=== PATIENT | female | born 1955 | race Caucasian/White ===

== ENCOUNTER 2019-07-20 14:30 | Outpatient (RCR) | payer OTHER, SELFPAY ==
[2019-07-13 08:46] VITALS: BP 137/82; PULSE 76; RESP 18; TEMP 36.6; BMI 20.8
--- NOTE | 2019-07-13 12:41 | PCM.WC.HP ---
(1) HTN (hypertension) Status: Chronic Current Visit: Yes Qualifiers: Hypertension type: essential hypertension Qualified Code(s): I10 - Essential (primary) hypertension Code(s): I10 - Essential (primary) hypertension (2) Tobacco abuse Status: Chronic Current Visit: Yes Code(s): Z72.0 - Tobacco use (3) H/O ETOH abuse Status: Chronic Current Visit: Yes Code(s): F10.11 - Alcohol abuse, in remission (4) Cellulitis Status: Chronic Current Visit: Yes Qualifiers: Site of cellulitis: extremity Site of cellulitis of extremity: upper extremity Laterality: right Qualified Code(s): L03.113 - Cellulitis of right upper limb Code(s): L03.90 - Cellulitis, unspecified (5) Olecranon bursitis of both elbows Status: Chronic Current Visit: Yes Code(s): M70.21 - Olecranon bursitis, right elbow; M70.22 - Olecranon bursitis, left elbow (6) Nonhealing nonsurgical wound with fat layer exposed Status: Chronic Current Visit: Yes Code(s): T14.8XXA - Other injury of unspecified body region, initial encounter Comment: s/p biopsy History of Present Illness Date of Service: 07/13/19 Chief Complaint: nonhealing wound of right ventral forearm History of Wound: Chanda is a 63 yo female who presents to the wound center for evaluation and treatment of a nonhealing wound of right forearm/elbow area that has been present for approx. 9 months. She reports that she developed an erythematous lesion which opened and was not healing approx. 1 year ago and was punch biopsied by her PCP several months ago and has never healed. She does not know what the biopsy showed but was done to r/o skin cancer which she reports that it did not show skin cancer and that she was being treated for psoriasis with steroid cream but there has been no improvement. She was referred to see Dr. Eduardo after being seen in [facility] and having IV antibiotic treatment x 2 doses and then given oral Bactrim which she has continued to take for the last 3 weeks. She had an xray in Dr. Eduardo's office which did not show infection in the bone per patient. She states that the pain and redness has improved since antibiotic treatment but the wound still has not changed. Denies drainage currently but there was when she went to ER. She has not been dressing the wound with anything but has been applying the steroid cream. She denies any fever, chills or signs of systemic infection. 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 tobacco abuse. Psoriasis Surgical History: no surgical history Allergies/Adverse Reactions: Allergies prednisone Adverse Reaction (Verified 07/13/19 12:59) Unknown - Family History Paternal Heart Disease Sibling Stroke Lives: Spouse/ Significant Other Smoking Status: Current every day smoker Tobacco Use: Cigarettes Alcohol: Occasional Drugs: None Review of Systems Constitutional: Denies: Chills, Fever, Weight Change Eyes: Denies: Pain, Vision Change HEENT: Denies: Difficulty Hearing, Difficulty Swallowing, Sinus Congestion Cardiovascular: Denies: Chest Pain, Palpitations Respiratory: Denies: Cough, Shortness of Breath Gastrointestinal: Denies: Diarrhea, Nausea, Vomiting Genitourinary: Denies: Dysuria, Hematuria Musculoskeletal: Reports: Joint Pain Skin: Reports: Rash, Wounds Endocrine: Denies: Heat/ Cold Intolerance, Polydipsia, Polyuria Hematologic/ Lymphatic: Denies: Easy Bruising, Easy Bleeding - Physical Exam Vital Signs Temp Pulse Resp BP 97.9 F 76 18 137/82 H 07/13/19 08:46 07/13/19 08:46 07/13/19 08:46 07/13/19 08:46 General: Alert, Oriented x3, Cooperative, No apparent distress HEENT: Atraumatic, Normocephalic Oral: Moist Mucosa Neck: Supple Lungs: Clear to auscultation Cardiovascular: Regular rate, Regular Rhythm Abdomen: Soft, Non-Distended Extremities: No edema Skin: Ulcer/ Wound, - - erythematous elbows and some silver plaque b/l Wound Measurements and Assessment WC - Nurse 1 - General Ulcer Measurement Start: 07/13/19 08:35 Freq: Status: Active Protocol: Activity Type Activity Date Activity User E-Sign Co-Sign Detail Recorded Client Recorded Date Recorded By Document 07/13/19 08:46 MW [id number] 07/13/19 08:56 MW 07/13/19 08:46 Wound Center Nurse 1 [Ulcer Assessment] #1 right superior forearm -Combined with other wound No -Current Size (cm) - Length 0.7 -Current Size (cm) - Width 0.6 -Current Size (cm) - Depth 0.2 -Total Square Cm 0.42 -Date of Last Picture (Recall this 07/13/19 field) -Photo Taken Yes -Epithelialization None Present -Tunneling No -Undermining/Tunneling No -Circular Undermining No -Exudate Amt None Present -Wound Margin Flat & Intact -Granulation Amt None Present (0 %) -Granulation Quality N/A -Slough/Fibrin Yes -Necrosis Amt Large (67-100%) -Necrotic Tissue Type Adherent Slough -Structure Exposed N/A -Texture (Sarahi-wound Skin Appearance) Assessed -Moisture (Sarahi-wound Skin Appearance Assessed,Dry/ ) Scaly -Color (Sarahi-wound Skin Appearance) Assessed, Erythema -Temperature (Sarahi-wound Skin No Abnormality Appearance) (Pt Warm) -Tenderness on Palpation (Sarahi-wound Yes Skin Appearance) -Ulcer Cleansing Rinsed/ Irrigated with Saline -Foul Odor after Cleansing No -Anesthetic Used 5% Lidocaine Gel [Edema Assessment] -Lower Limb Edema Present No WC - Nurse 2 - General Ulcer CM Notes Start: 07/13/19 08:35 Freq: Status: Active Protocol: Activity Type Activity Date Activity User E-Sign Co-Sign Detail Recorded Client Recorded Date Recorded By Document 07/13/19 09:28 DV [id number] 07/13/19 09:56 DV 07/13/19 09:28 Wound Center Nurse 2 [Procedure/Treatment] #1 right superior forearm -Time 09:39 -Correct Patient Yes -Correct Side, Site, Position Yes -Correct Procedure Yes -Procedure Performed Yes -Type of Procedure Debridement -Clinical Debridement Subcutaneous -Post Debridement Size (cm) - Length 2.0 -Post Debridement Size (cm) - Width 1.5 -Post Debridement Size (cm) - Depth 0.2 -Total Square Cm 3.00 -Wound/Ulcer Outcome Not Healed [See Physician Procedure note for Specifics] Psych/Mental Status: Normal Affect, Appropriate Debridement Note Post-Debridement Measurements/Treatment WC - Nurse 2 - General Ulcer CM Notes Start: 07/13/19 08:35 Freq: Status: Active Protocol: Activity Type Activity Date Activity User E-Sign Co-Sign Detail Recorded Client Recorded Date Recorded By Document 07/13/19 09:28 DV [id number] 07/13/19 09:56 DV 07/13/19 09:28 Wound Center Nurse 2 #1 right superior forearm -Time 09:39 -Correct Patient Yes -Correct Side, Site, Position Yes -Correct Procedure Yes -Procedure Performed Yes -Type of Procedure Debridement -Clinical Debridement Subcutaneous -Post Debridement Size (cm) - Length 2.0 -Post Debridement Size (cm) - Width 1.5 -Post Debridement Size (cm) - Depth 0.2 -Total Square Cm 3.00 -Wound/Ulcer Outcome Not Healed Wound debrided: right superior forearm Laterality: Right Type of Debridement: Excisional debridement Anesthesia Used: 4% Lidocaine Solution, 5% Lidocaine Gel, Cetacaine - 5 ml with 1% lidocaine with epi Depth: Down to and including healthy tissue, in the subcutaneous layer Percentage of wound debrided: 100 Instrument Used: #15 blade, Forceps Tissue Removed: yellow slough, devitalized tissue Severity: Fat Layer Exposed Amount of bleeding with debridement: Mild Bleeding Controlled with: Compression and gauze Patient tolerated procedure well Assessment/Plan Active Problems HTN (hypertension) (Chronic) Tobacco abuse (Chronic) H/O ETOH abuse (Chronic) Cellulitis (Chronic) Olecranon bursitis of both elbows (Chronic) 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 Excision of skin causing undermining performed after area anesthetized with 1% lidocaine with epi. Patient tolerated procedure well. Wound culture taken and will adjust antibiotic if needed. No foreign body or fistula/tracts identified. Will have her use Promogran and adaptic to the wound with changes daily. Complete antibiotics. Call if increased erythema, drainage, bleeding or odor. Encouraged to increase protein intake in diet, smoking cessation encouraged as well. Pre-albumin checked to evaluate nutritional status. Records requested for biopsy results and xray. F/U in 1 week
[2019-07-13 13:08] LABS: Prealbumin 35.9 mg/dL (20.0-40.0)
[2019-07-20 14:08] VITALS: BP 132/83; PULSE 111; RESP 18; TEMP 36.2; BMI 20.8
--- NOTE | 2019-07-20 18:08 | PCM.WC.PN ---
(1) HTN (hypertension) Status: Chronic Qualifiers: Hypertension type: essential hypertension Qualified Code(s): I10 - Essential (primary) hypertension Code(s): I10 - Essential (primary) hypertension (2) Tobacco abuse Status: Chronic Code(s): Z72.0 - Tobacco use (3) H/O ETOH abuse Status: Chronic Code(s): F10.11 - Alcohol abuse, in remission (4) Cellulitis Status: Chronic Qualifiers: Site of cellulitis: extremity Site of cellulitis of extremity: upper extremity Laterality: right Qualified Code(s): L03.113 - Cellulitis of right upper limb Code(s): L03.90 - Cellulitis, unspecified (5) Olecranon bursitis of both elbows Status: Chronic Code(s): M70.21 - Olecranon bursitis, right elbow; M70.22 - Olecranon bursitis, left elbow (6) Nonhealing nonsurgical 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 9 months. She reports that she developed an erythematous lesion which opened and was not healing approx. 1 year ago and was punch biopsied by her PCP several months ago and has never healed. She does not know what the biopsy showed but was done to r/o skin cancer which she reports that it did not show skin cancer and that she was being treated for psoriasis with steroid cream but there has been no improvement. She was referred to see Dr. Eduardo after being seen in [facility] ER and having IV antibiotic treatment x 2 doses and then given oral Bactrim which she has continued to take for the last 3 weeks. She had an xray in Dr. Eduardo's office which did not show infection in the bone per patient. She states that the pain and redness has improved since antibiotic treatment but the wound still has not changed. Denies drainage currently but there was when she went to ER. She has not been dressing the wound with anything but has been applying the steroid cream. She denies any fever, chills or signs of systemic infection. Progress of Wound: Chanda is here for follow up of nonhealing surgical wound of her right ventral forearm. She tolerated excisional debridement performed at last visit. She tolerated Promogran dressings. Wound culture came back that bacteria was not sensitive to bactrim, stap epidermidis but is sensutive to doxycycline. She denies any fever, chills or increased pain or drainage. - Physical Exam Vital Signs Temp Pulse Resp BP 97.1 F L 111 H 18 132/83 H 07/20/19 14:08 07/20/19 14:08 07/20/19 14:08 07/20/19 14:08 General: Alert, Oriented x3, Cooperative, No apparent distress HEENT: Atraumatic, Normocephalic Oral: Moist Mucosa Extremities: No edema Skin: Ulcer/ Wound Wound Measurements and Assessment WC - Nurse 1 - General Ulcer Measurement Start: 07/13/19 08:35 Freq: Status: Active Protocol: Activity Type Activity Date Activity User E-Sign Co-Sign Detail Recorded Client Recorded Date Recorded By Document 07/20/19 14:08 [id number] 07/20/19 14:11 RB 07/20/19 14:08 Wound Center Nurse 1 [Ulcer Assessment] #1 right superior forearm -Combined with other wound No -Current Size (cm) - Length 1.5 -Current Size (cm) - Width 1.4 -Current Size (cm) - Depth 0.1 -Total Square Cm 2.10 -Tunneling No -Undermining/Tunneling No -Circular Undermining No -Exudate Amt Small -Exudate Type Serosanguineous -Wound Margin Flat & Intact -Granulation Amt Medium (34-66%) -Granulation Quality [place] -Slough/Fibrin Yes -Necrosis Amt Small (1-33%) -Necrotic Tissue Type Adherent Slough -Structure Exposed N/A -Texture (Sarahi-wound Skin Appearance) Assessed, Scarring -Moisture (Sarahi-wound Skin Appearance Assessed ) -Color (Sarahi-wound Skin Appearance) Assessed -Temperature (Sarahi-wound Skin No Abnormality Appearance) (Pt Warm) -Tenderness on Palpation (Sarahi-wound No Skin Appearance) -Ulcer Cleansing Wound Cleanser -Foul Odor after Cleansing No -Anesthetic Used 5% Lidocaine Gel WC - Nurse 2 - General Ulcer CM Notes Start: 07/13/19 08:35 Freq: Status: Active Protocol: Activity Type Activity Date Activity User E-Sign Co-Sign Detail Recorded Client Recorded Date Recorded By Document 07/20/19 14:51 MW [id number] 07/20/19 15:00 MW 07/20/19 14:51 Wound Center Nurse 2 [Procedure/Treatment] -Time 14:53 -Correct Patient Yes -Correct Side, Site, Position Yes -Correct Procedure Yes -Procedure Performed Yes -Type of Procedure Debridement -Clinical Debridement Subcutaneous -Post Debridement Size (cm) - Length 1.8 -Post Debridement Size (cm) - Width 1.5 -Post Debridement Size (cm) - Depth 0.2 -Total Square Cm 2.70 -Wound/Ulcer Outcome Not Healed -Ulcer Cleansing Rinsed/ Irrigated with Saline -Foul Odor after Cleansing No -Bioengineered Tissue No -Bleeding Controlled with Pressure -Offloading No -Treatment Response Procedure Tolerated Well [See Physician Procedure note for Specifics] Pain Scale: 0-10 Numeric [Pain] -Is Patient Pain Free? Yes Psych/Mental Status: Normal Affect, Appropriate Debridement Note Post-Debridement Measurements/Treatment WC - Nurse 2 - General Ulcer CM Notes Start: 07/13/19 08:35 Freq: Status: Active Protocol: Activity Type Activity Date Activity User E-Sign Co-Sign Detail Recorded Client Recorded Date Recorded By Document 07/13/19 09:28 DV [id number] 07/13/19 09:56 DV Document 07/20/19 14:51 MW [id number] 07/20/19 15:00 MW 07/13/19 07/20/19 09:28 14:51 Wound Center Nurse 2 #1 right superior forearm -Time 09:39 14:53 -Correct Patient Yes Yes -Correct Side, Site, Position Yes Yes -Correct Procedure Yes Yes -Procedure Performed Yes Yes -Type of Procedure Debridement Debridement -Clinical Debridement Subcutaneous Subcutaneous -Post Debridement Size (cm) - Length 2.0 1.8 -Post Debridement Size (cm) - Width 1.5 1.5 -Post Debridement Size (cm) - Depth 0.2 0.2 -Total Square Cm 3.00 2.70 -Wound/Ulcer Outcome Not Healed Not Healed -Ulcer Cleansing Rinsed/ Irrigated with Saline -Foul Odor after Cleansing No -Bioengineered Tissue No -Bleeding Controlled with Pressure -Offloading No -Treatment Response Procedure Tolerated Well Pain Scale: 0-10 Numeric Is Patient Pain Free? Yes Wound debrided: right superior forearm Laterality: Right Type of Debridement: Excisional debridement Anesthesia Used: 4% Lidocaine Solution Depth: Down to and including healthy tissue, in the subcutaneous layer Percentage of wound debrided: 100 Instrument Used: 5mm curette Tissue Removed: yellow slough, devitalized tissue Severity: Fat Layer Exposed Amount of bleeding with debridement: Mild Bleeding Controlled with: Compression and gauze Patient tolerated procedure well Assessment/Plan Assessment: nonhealing surgical wound Plan: Chanda's wound was evaluated and debrided. Wound culture showed staph epidermis resistant to bactrim, RX given for doxycycline 100 mg BID x 10 days. She will use collagen hydrogel and adaptic covered with gauze instead of Promogran due to the wound being very dry with Promogran. Call if increased erythema, drainage, bleeding or odor. Encouraged to increase protein intake in diet, smoking cessation encouraged as well. Pre-albumin normal. Biopsy results reviewed and showed prurigo nodularis. F/U in 1 week
== END 2019-07-24 23:59 ==
LOC: WC 14:30
PROVIDERS: Referring Provider Family Medicine; Visit Provider Family Medicine
DX: T81.89XA Other complications of procedures, not elsewhere classified, initial encounter (principal); Y83.8 Other surgical procedures as the cause of abnormal reaction of the patient, or of later complication, without mention of misadventure at the time of the procedure; F17.210 Nicotine dependence, cigarettes, uncomplicated; I10 Essential (primary) hypertension; F10.11 Alcohol abuse, in remission; M70.22 Olecranon bursitis, left elbow; M70.21 Olecranon bursitis, right elbow; L03.113 Cellulitis of right upper limb
CPT/HCPCS: 11042; 84134; 87070; 87075; 87077; 87186; 87205; 99203; G0463

== ENCOUNTER 2019-08-24 16:42 | Outpatient (RCR) | payer OTHER, SELFPAY ==
[2019-07-25 01:08] VITALS: BP 132/83; PULSE 111; RESP 18; TEMP 36.2
[2019-07-27 07:59] VITALS: BP 175/90; PULSE 90; RESP 18; TEMP 36.3; BMI 20.8
--- NOTE | 2019-07-27 09:07 | PCM.WC.PN ---
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 9 months. She reports that she developed an erythematous lesion which opened and was not healing approx. 1 year ago and was punch biopsied by her PCP several months ago and has never healed. She does not know what the biopsy showed but was done to r/o skin cancer which she reports that it did not show skin cancer and that she was being treated for psoriasis with steroid cream but there has been no improvement. She was referred to see Dr. Eduardo after being seen in [facility] ER and having IV antibiotic treatment x 2 doses and then given oral Bactrim which she has continued to take for the last 3 weeks. She had an xray in Dr. Eduardo's office which did not show infection in the bone per patient. She states that the pain and redness has improved since antibiotic treatment but the wound still has not changed. Denies drainage currently but there was when she went to ER. She has not been dressing the wound with anything but has been applying the steroid cream. She denies any fever, chills or signs of systemic infection. Progress of Wound: Chanda is here for follow up of nonhealing surgical wound. Her wound looks better with hydrogel dressings. She denies any pain. She is tolerating doxycycline. She has had fluctuating blood pressures over the last week or two and had elevated blood pressure and shakiness on Tuesday and last weekend it was low in the 90s. She is scheduled to see PCP in August. Denies any fever or chills, odor or increased drainage. - Physical Exam Vital Signs Temp Pulse Resp BP 97.3 F L 90 18 175/90 H 07/27/19 07:59 07/27/19 07:59 07/27/19 07:59 07/27/19 07:59 General: Alert, Oriented x3, Cooperative, No apparent distress HEENT: Atraumatic, Normocephalic Oral: Moist Mucosa Neck: Supple Extremities: No edema Skin: Ulcer/ Wound Wound Measurements and Assessment WC - Nurse 1 - General Ulcer Measurement Start: 07/27/19 07:57 Freq: Status: Active Protocol: Activity Type Activity Date Activity User E-Sign Co-Sign Detail Recorded Client Recorded Date Recorded By Document 07/27/19 07:59 [id number] 07/27/19 08:04 [email or web address] 07/27/19 07:59 Wound Center Nurse 1 [Ulcer Assessment] #1 right superior forearm -Combined with other wound No -Current Size (cm) - Length 1.7 -Current Size (cm) - Width 1.4 -Current Size (cm) - Depth 0.2 -Total Square Cm 2.38 -Photo Taken No -Epithelialization None Present -Tunneling No -Undermining/Tunneling No -Circular Undermining No -Exudate Amt Small -Exudate Type Serosanguineous -Wound Margin Flat & Intact -Granulation Amt None Present (0 %) -Slough/Fibrin Yes -Necrosis Amt Large (67-100%) -Necrotic Tissue Type Adherent Slough -Structure Exposed N/A -Texture (Sarahi-wound Skin Appearance) Assessed -Moisture (Sarahi-wound Skin Appearance Assessed,Dry/ ) Scaly -Color (Sarahi-wound Skin Appearance) Assessed -Temperature (Sarahi-wound Skin No Abnormality Appearance) (Pt Warm) -Tenderness on Palpation (Sarahi-wound No Skin Appearance) -Ulcer Cleansing Rinsed/ Irrigated with Saline -Foul Odor after Cleansing No -Anesthetic Used 4% Lidocaine Solution [Edema Assessment] -Lower Limb Edema Present NA - Nurse 2 - General Ulcer CM Notes Start: 07/27/19 07:57 Freq: Status: Active Protocol: Activity Type Activity Date Activity User E-Sign Co-Sign Detail Recorded Client Recorded Date Recorded By Document 07/27/19 08:27 MW [id number] 07/27/19 08:35 MW 07/27/19 08:27 Wound Center Nurse 2 [Procedure/Treatment] #1 right superior forearm -Time 08:27 -Correct Patient Yes -Correct Side, Site, Position Yes -Correct Procedure Yes -Procedure Performed Yes -Type of Procedure Debridement -Clinical Debridement Subcutaneous -Post Debridement Size (cm) - Length 1.4 -Post Debridement Size (cm) - Width 1.4 -Post Debridement Size (cm) - Depth 0.2 -Total Square Cm 1.96 -Wound/Ulcer Outcome Not Healed -Ulcer Cleansing Rinsed/ Irrigated with Saline -Foul Odor after Cleansing No -Bioengineered Tissue No -Bleeding Controlled with Pressure -Offloading No -Treatment Response Procedure Tolerated Well [See Physician Procedure note for Specifics] Pain Scale: 0-10 Numeric [Pain] -Is Patient Pain Free? Yes Psych/Mental Status: Normal Affect, Appropriate Debridement Note Post-Debridement Measurements/Treatment WC - Nurse 2 - General Ulcer CM Notes Start: 07/27/19 07:57 Freq: Status: Active Protocol: Activity Type Activity Date Activity User E-Sign Co-Sign Detail Recorded Client Recorded Date Recorded By Document 07/27/19 08:27 MW [id number] 07/27/19 08:35 MW 07/27/19 08:27 Wound Center Nurse 2 #1 right superior forearm -Time 08:27 -Correct Patient Yes -Correct Side, Site, Position Yes -Correct Procedure Yes -Procedure Performed Yes -Type of Procedure Debridement -Clinical Debridement Subcutaneous -Post Debridement Size (cm) - Length 1.4 -Post Debridement Size (cm) - Width 1.4 -Post Debridement Size (cm) - Depth 0.2 -Total Square Cm 1.96 -Wound/Ulcer Outcome Not Healed -Ulcer Cleansing Rinsed/ Irrigated with Saline -Foul Odor after Cleansing No -Bioengineered Tissue No -Bleeding Controlled with Pressure -Offloading No -Treatment Response Procedure Tolerated Well Pain Scale: 0-10 Numeric Is Patient Pain Free? Yes Wound debrided: right superior forearm Laterality: Right Type of Debridement: Excisional debridement Anesthesia Used: 4% Lidocaine Solution Depth: Down to and including healthy tissue, in the subcutaneous layer Percentage of wound debrided: 100 Instrument Used: 5mm curette Tissue Removed: yellow slough, devitalized tissue Severity: Fat Layer Exposed Amount of bleeding with debridement: Mild Bleeding Controlled with: Compression and gauze Patient tolerated procedure well Assessment/Plan Active Problems HTN (hypertension) (Chronic) Cellulitis (Chronic) 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 She will complete doxycycline on Tuesday. She will continue to use collagen hydrogel and adaptic covered with gauze. Encouraged her to call PCP to be seen sooner for her blood pressure. Call if increased erythema, drainage, bleeding or odor. Encouraged to increase protein intake in diet, smoking cessation encouraged as well. Pre-albumin normal. Biopsy results reviewed and showed prurigo nodularis. F/U in 2 weeks at patient's request due to work schedule.
[2019-08-10 15:45] VITALS: BP 149/80; PULSE 90; RESP 18; TEMP 36.1; BMI 20.8
--- NOTE | 2019-08-10 19:19 | PN.PCM_ITS ---
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 9 months. She reports that she developed an erythematous lesion which opened and was not healing approx. 1 year ago and was punch biopsied by her PCP several months ago and has never healed. She does not know what the biopsy showed but was done to r/o skin cancer which she reports that it did not show skin cancer and that she was being treated for psoriasis with steroid cream but there has been no improvement. She was referred to see Dr. Eduardo after being seen in [facility] and having IV antibiotic treatment x 2 doses and then given oral Bactrim which she has continued to take for the last 3 weeks. She had an xray in Dr. Eduardo's office which did not show infection in the bone per patient. She states that the pain and redness has improved since antibiotic treatment but the wound still has not changed. Denies drainage currently but there was when she went to ER. She has not been dressing the wound with anything but has been applying the steroid cream. She denies any fever, chills or signs of systemic infection. Progress of Wound: Chanda is here for follow up of nonhealing surgical wound. Her wound looks better with hydrogel dressings. She denies any pain. She completed doxycycline. Her elbow above the wound is erythematous. Denies any fever or chills, odor or increased drainage. - Physical Exam Vital Signs Temp Pulse Resp BP 97 F L 90 18 149/80 H 08/10/19 15:45 08/10/19 15:45 08/10/19 15:45 08/10/19 15:45 General: Alert, Oriented x3, Cooperative, No apparent distress HEENT: Atraumatic, Normocephalic Oral: Moist Mucosa Extremities: No edema Skin: Ulcer/ Wound Wound Measurements and Assessment WC - Nurse 1 - General Ulcer Measurement Start: 07/27/19 07:57 Freq: Status: Active Protocol: Activity Type Activity Date Activity User E-Sign Co-Sign Detail Recorded Client Recorded Date Recorded By Document 08/10/19 15:45 [facility] [id number] 08/10/19 15:47 BMF 08/10/19 15:45 Wound Center Nurse 1 [Ulcer Assessment] #1 right superior forearm -Combined with other wound No -Current Size (cm) - Length 1.3 -Current Size (cm) - Width 1 -Current Size (cm) - Depth 0.2 -Total Square Cm 1.3 -Tunneling No -Undermining/Tunneling No -Circular Undermining No -Exudate Amt Small -Exudate Type Serosanguineous -Wound Margin Flat & Intact -Granulation Amt Medium (34-66%) -Granulation Quality Backus -Slough/Fibrin Yes -Necrosis Amt Large (67-100%) -Necrotic Tissue Type Adherent Slough -Structure Exposed N/A -Texture (Sarahi-wound Skin Appearance) Assessed, Scarring -Moisture (Sarahi-wound Skin Appearance Assessed ) -Color (Sarahi-wound Skin Appearance) Assessed -Temperature (Sarahi-wound Skin No Abnormality Appearance) (Pt Warm) -Tenderness on Palpation (Sarahi-wound No Skin Appearance) -Ulcer Cleansing Wound Cleanser -Foul Odor after Cleansing No -Anesthetic Used 5% Lidocaine Gel WC - Nurse 2 - General Ulcer CM Notes Start: 07/27/19 07:57 Freq: Status: Active Protocol: Activity Type Activity Date Activity User E-Sign Co-Sign Detail Recorded Client Recorded Date Recorded By Document 08/10/19 15:57 DV [id number] 08/10/19 16:01 DV 08/10/19 15:57 Wound Center Nurse 2 [Procedure/Treatment] -Time 16:00 -Correct Patient Yes -Correct Side, Site, Position Yes -Correct Procedure Yes -Procedure Performed Yes -Type of Procedure Debridement -Clinical Debridement Subcutaneous -Post Debridement Size (cm) - Length 1.1 -Post Debridement Size (cm) - Width 1.2 -Post Debridement Size (cm) - Depth 0.1 -Total Square Cm 1.32 -Wound/Ulcer Outcome Not Healed -Ulcer Cleansing Rinsed/ Irrigated with Saline -Foul Odor after Cleansing No -Bioengineered Tissue No -Bleeding Controlled with Pressure -Offloading No -Treatment Response Procedure Tolerated Well [See Physician Procedure note for Specifics] Pain Scale: 0-10 Numeric [Pain] -Is Patient Pain Free? Yes Psych/Mental Status: Normal Affect, Appropriate Debridement Note Post-Debridement Measurements/Treatment WC - Nurse 2 - General Ulcer CM Notes Start: 07/27/19 07:57 Freq: Status: Active Protocol: Activity Type Activity Date Activity User E-Sign Co-Sign Detail Recorded Client Recorded Date Recorded By Document 07/27/19 08:27 MW [id number] 07/27/19 08:35 MW Document 08/10/19 15:57 DV [id number] 08/10/19 16:01 DV 07/27/19 08/10/19 08:27 15:57 Wound Center Nurse 2 #1 right superior forearm -Time 08:27 16:00 -Correct Patient Yes Yes -Correct Side, Site, Position Yes Yes -Correct Procedure Yes Yes -Procedure Performed Yes Yes -Type of Procedure Debridement Debridement -Clinical Debridement Subcutaneous Subcutaneous -Post Debridement Size (cm) - Length 1.4 1.1 -Post Debridement Size (cm) - Width 1.4 1.2 -Post Debridement Size (cm) - Depth 0.2 0.1 -Total Square Cm 1.96 1.32 -Wound/Ulcer Outcome Not Healed Not Healed -Ulcer Cleansing Rinsed/ Rinsed/ Irrigated with Irrigated with Saline Saline -Foul Odor after Cleansing No No -Bioengineered Tissue No No -Bleeding Controlled with Pressure Pressure -Offloading No No -Treatment Response Procedure Procedure Tolerated Well Tolerated Well Pain Scale: 0-10 Numeric Is Patient Pain Free? 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 She will restart doxycycline for possible infection of her elbow. She will continue to use collagen hydrogel and adaptic covered with gauze. Call if increased erythema, drainage, bleeding or odor. Encouraged to increase protein intake in diet, smoking cessation encouraged as well. Pre-albumin normal. Biopsy results reviewed and showed prurigo nodularis. F/U in 2 weeks at patient's request due to work schedule.
[2019-08-24 15:54] VITALS: BP 159/74; PULSE 101; RESP 16; TEMP 35.7; BMI 20.8
--- NOTE | 2019-08-24 20:02 | PCM.WC.PN ---
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 9 months. She reports that she developed an erythematous lesion which opened and was not healing approx. 1 year ago and was punch biopsied by her PCP several months ago and has never healed. She does not know what the biopsy showed but was done to r/o skin cancer which she reports that it did not show skin cancer and that she was being treated for psoriasis with steroid cream but there has been no improvement. She was referred to see Dr. Eduardo after being seen in [facility] ER and having IV antibiotic treatment x 2 doses and then given oral Bactrim which she has continued to take for the last 3 weeks. She had an xray in Dr. Eduardo's office which did not show infection in the bone per patient. She states that the pain and redness has improved since antibiotic treatment but the wound still has not changed. Denies drainage currently but there was when she went to ER. She has not been dressing the wound with anything but has been applying the steroid cream. She denies any fever, chills or signs of systemic infection. Progress of Wound: Chanda is here for follow up of nonhealing surgical wound. Her wound looks better with hydrogel dressings. She denies any pain. She completed doxycycline. Her elbow above the wound is still erythematous. Denies any fever or chills, odor or increased drainage. - Physical Exam Vital Signs Temp Pulse Resp BP 96.3 F L 101 H 16 159/74 H 08/24/19 15:54 08/24/19 15:54 08/24/19 15:54 08/24/19 15:54 General: Alert, Oriented x3, Cooperative, No apparent distress HEENT: Atraumatic, Normocephalic Oral: Moist Mucosa Extremities: Edema Skin: Ulcer/ Wound Wound Measurements and Assessment WC - Nurse 1 - General Ulcer Measurement Start: 07/27/19 07:57 Freq: Status: Active Protocol: Activity Type Activity Date Activity User E-Sign Co-Sign Detail Recorded Client Recorded Date Recorded By Document 08/24/19 15:54 BM [id number] 08/24/19 15:57 BMF 08/24/19 15:54 Wound Center Nurse 1 [Ulcer Assessment] #1 right superior forearm -Combined with other wound No -Current Size (cm) - Length 0.8 -Current Size (cm) - Width 0.6 -Current Size (cm) - Depth 0.2 -Total Square Cm 0.48 -Photo Taken No -Epithelialization None Present -Tunneling No -Undermining/Tunneling No -Circular Undermining No -Exudate Amt Small -Exudate Type Serous -Wound Margin Distinct, Outline Attached -Granulation Amt None Present (0 %) -Slough/Fibrin Yes -Necrosis Amt Large (67-100%) -Necrotic Tissue Type Adherent Slough -Texture (Sarahi-wound Skin Appearance) Assessed, Scarring -Moisture (Sarahi-wound Skin Appearance Assessed,Dry/ ) Scaly -Color (Sarahi-wound Skin Appearance) Assessed -Temperature (Sarahi-wound Skin No Abnormality Appearance) (Pt Warm) -Tenderness on Palpation (Sarahi-wound No Skin Appearance) -Ulcer Cleansing Rinsed/ Irrigated with Saline -Foul Odor after Cleansing No -Anesthetic Used 5% Lidocaine Gel WC - Nurse 2 - General Ulcer CM Notes Start: 07/27/19 07:57 Freq: Status: Active Protocol: Activity Type Activity Date Activity User E-Sign Co-Sign Detail Recorded Client Recorded Date Recorded By Document 08/24/19 16:09 DV [id number] 08/24/19 16:16 DV 08/24/19 16:09 Wound Center Nurse 2 [Procedure/Treatment] #2 Right Elbow -Time 16:13 -Correct Patient Yes -Correct Side, Site, Position Yes -Correct Procedure Yes -Procedure Performed Yes -Type of Procedure Debridement -Clinical Debridement Subcutaneous -Post Debridement Size (cm) - Length 0.3 -Post Debridement Size (cm) - Width 0.5 -Post Debridement Size (cm) - Depth 0.2 -Total Square Cm 0.15 -Wound/Ulcer Outcome Not Healed -Ulcer Cleansing Rinsed/ Irrigated with Saline -Foul Odor after Cleansing No -Bioengineered Tissue No -Bleeding Controlled with Pressure -Offloading No -Treatment Response Procedure Tolerated Well #1 right superior forearm -Time 16:10 -Correct Patient Yes -Correct Side, Site, Position Yes -Correct Procedure Yes -Procedure Performed Yes -Type of Procedure Debridement -Clinical Debridement Subcutaneous -Post Debridement Size (cm) - Length 0.9 -Post Debridement Size (cm) - Width 0.6 -Post Debridement Size (cm) - Depth 0.2 -Total Square Cm 0.54 -Wound/Ulcer Outcome Not Healed -Ulcer Cleansing Rinsed/ Irrigated with Saline -Foul Odor after Cleansing No -Bioengineered Tissue No -Bleeding Controlled with Pressure -Offloading No [See Physician Procedure note for Specifics] Pain Scale: 0-10 Numeric [Pain] -Is Patient Pain Free? Yes Psych/Mental Status: Normal Affect, Appropriate Debridement Note Post-Debridement Measurements/Treatment WC - Nurse 2 - General Ulcer CM Notes Start: 07/27/19 07:57 Freq: Status: Active Protocol: Activity Type Activity Date Activity User E-Sign Co-Sign Detail Recorded Client Recorded Date Recorded By Document 07/27/19 08:27 MW [id number] 07/27/19 08:35 MW Document 08/10/19 15:57 DV [id number] 08/10/19 16:01 DV Document 08/24/19 16:09 DV [id number] 08/24/19 16:16 DV 07/27/19 08/10/19 08/24/19 08:27 15:57 16:09 Wound Center Nurse 2 #2 Right Elbow -Time 16:13 -Correct Patient Yes -Correct Side, Site, Position Yes -Correct Procedure Yes -Procedure Performed Yes -Type of Procedure Debridement -Clinical Debridement Subcutaneous -Post Debridement Size (cm) - Length 0.3 -Post Debridement Size (cm) - Width 0.5 -Post Debridement Size (cm) - Depth 0.2 -Total Square Cm 0.15 -Wound/Ulcer Outcome Not Healed -Ulcer Cleansing Rinsed/ Irrigated with Saline -Foul Odor after Cleansing No -Bioengineered Tissue No -Bleeding Controlled with Pressure -Offloading No -Treatment Response Procedure Tolerated Well #1 right superior forearm -Time 08:27 16:00 16:10 -Correct Patient Yes Yes Yes -Correct Side, Site, Position Yes Yes Yes -Correct Procedure Yes Yes Yes -Procedure Performed Yes Yes Yes -Type of Procedure Debridement Debridement Debridement -Clinical Debridement Subcutaneous Subcutaneous Subcutaneous -Post Debridement Size (cm) - Length 1.4 1.1 0.9 -Post Debridement Size (cm) - Width 1.4 1.2 0.6 -Post Debridement Size (cm) - Depth 0.2 0.1 0.2 -Total Square Cm 1.96 1.32 0.54 -Wound/Ulcer Outcome Not Healed Not Healed Not Healed -Ulcer Cleansing Rinsed/ Rinsed/ Rinsed/ Irrigated with Irrigated with Irrigated with Saline Saline Saline -Foul Odor after Cleansing No No No -Bioengineered Tissue No No No -Bleeding Controlled with Pressure Pressure Pressure -Offloading No No No -Treatment Response Procedure Procedure Tolerated Well Tolerated Well Pain Scale: 0-10 Numeric Is Patient Pain Free? Yes Yes Yes Wound debrided: right elbow Laterality: Right Type of Debridement: Excisional debridement Anesthesia Used: 4% Lidocaine Solution, 5% Lidocaine Gel Depth: Down to and including healthy tissue, in the subcutaneous layer Percentage of wound debrided: 100 Instrument Used: 3mm curette Tissue Removed: yellow slough and devitalized tissue Severity: Fat Layer Exposed Amount of bleeding with debridement: Mild Bleeding Controlled with: Compression and gauze Patient tolerated procedure well - Additional Wound Wound debrided: right superior forearm Laterality: Right Type of Debridement: Excisional debridement Anesthesia Used: 4% Lidocaine Solution, 5% Lidocaine Gel Depth: Down to and including healthy tissue, in the subcutaneous layer Percentage of wound debrided: 100 Instrument Used: 3mm curette Tissue Removed: yellow slough and devitalized tissue Severity: Fat Layer Exposed Amount of bleeding with debridement: Mild Bleeding Controlled with: Compression and gauze Patient tolerated procedure: Patient tolerated procedure well Assessment/Plan Active Problems HTN (hypertension) (Chronic) Cellulitis (Chronic) 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 She completed doxycycline for possible infection of her elbow. She will continue to use collagen hydrogel and adaptic covered with gauze. Wound culture done today and will treat based on results. Call if increased erythema, drainage, bleeding or odor. Encouraged to increase protein intake in diet, smoking cessation encouraged as well. Pre-albumin normal. Biopsy results reviewed and showed prurigo nodularis. F/U in 2 weeks at patient's request due to work schedule.
== END 2019-08-24 23:59 ==
LOC: WC 16:42
PROVIDERS: Referring Provider Family Medicine; Visit Provider Family Medicine
DX: T81.89XA Other complications of procedures, not elsewhere classified, initial encounter (principal); Y83.9 Surgical procedure, unspecified as the cause of abnormal reaction of the patient, or of later complication, without mention of misadventure at the time of the procedure; L28.1 Prurigo nodularis; I10 Essential (primary) hypertension; L03.113 Cellulitis of right upper limb
CPT/HCPCS: 11042; 87070; 87075; 87077; 87186; 87205

== ENCOUNTER 2019-09-21 16:00 | Outpatient (RCR) | payer OTHER, SELFPAY ==
[2019-08-25 00:59] VITALS: BP 159/74; PULSE 101; RESP 16; TEMP 35.7
[2019-09-07 15:38] VITALS: BP 107/58; PULSE 62; RESP 18; TEMP 34.8; BMI 20.8
--- NOTE | 2019-09-07 17:23 | PN.PCM_ITS ---
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 9 months. She reports that she developed an erythematous lesion which opened and was not healing approx. 1 year ago and was punch biopsied by her PCP several months ago and has never healed. She does not know what the biopsy showed but was done to r/o skin cancer which she reports that it did not show skin cancer and that she was being treated for psoriasis with steroid cream but there has been no improvement. She was referred to see Dr. Eduardo after being seen in [facility] ER and having IV antibiotic treatment x 2 doses and then given oral Bactrim which she has continued to take for the last 3 weeks. She had an xray in Dr. Eduardo's office which did not show infection in the bone per patient. She states that the pain and redness has improved since antibiotic treatment but the wound still has not changed. Denies drainage currently but there was when she went to ER. She has not been dressing the wound with anything but has been applying the steroid cream. She denies any fever, chills or signs of systemic infection. Progress of Wound: Chanda is here for follow up of nonhealing surgical wound. Her wound looks better with hydrogel dressings but is still dry. She denies any pain. She had a positive wund culture and was treated with levofloxacin. Her elbow above the wound is still erythematous but is not draining. Denies any fever or chills, odor or increased drainage. - Physical Exam Vital Signs Temp Pulse Resp BP 94.7 F L 62 18 107/58 L 09/07/19 15:38 09/07/19 15:38 09/07/19 15:38 09/07/19 15:38 General: Alert, Oriented x3, Cooperative, No apparent distress HEENT: Atraumatic, Normocephalic Oral: Moist Mucosa Skin: Ulcer/ Wound Wound Measurements and Assessment WC - Nurse 1 - General Ulcer Measurement Start: 09/07/19 15:38 Freq: Status: Active Protocol: Activity Type Activity Date Activity User E-Sign Co-Sign Detail Recorded Client Recorded Date Recorded By Document 09/07/19 15:38 DV [id number] 09/07/19 15:47 DV 09/07/19 15:38 Wound Center Nurse 1 [Ulcer Assessment] #2 Right Elbow -Combined with other wound No -Current Size (cm) - Length 0.2 -Current Size (cm) - Width 0.2 -Current Size (cm) - Depth 0.1 -Total Square Cm 0.04 -Photo Taken No -Epithelialization None Present -Tunneling No -Undermining/Tunneling No -Circular Undermining No -Classification - Thickness Full Thickness without Exposed Support Structure -Exudate Amt None Present -Granulation Amt None Present (0 %) -Granulation Quality N/A -Slough/Fibrin No -Necrosis Amt Small (1-33%) -Necrotic Tissue Type Adherent Slough -Structure Exposed None/Limited to Skin Breakdown -Texture (Sarahi-wound Skin Appearance) Assessed, Scarring -Moisture (Sarahi-wound Skin Appearance Assessed,Dry/ ) Scaly -Color (Sarahi-wound Skin Appearance) No Abnormality, Assessed -Temperature (Sarahi-wound Skin No Abnormality Appearance) (Pt Warm) -Tenderness on Palpation (Sarahi-wound No Skin Appearance) -Ulcer Cleansing Rinsed/ Irrigated with Saline -Foul Odor after Cleansing No -Anesthetic Used 5% Lidocaine Gel #1 right superior forearm -Combined with other wound No -Current Size (cm) - Length 0.2 -Current Size (cm) - Width 0.2 -Current Size (cm) - Depth 0.1 -Total Square Cm 0.04 -Photo Taken No -Epithelialization None Present -Undermining/Tunneling No -Circular Undermining No -Classification - Thickness Full Thickness without Exposed Support Structure -Wound Margin Flat & Intact -Granulation Amt None Present (0 %) -Granulation Quality N/A -Slough/Fibrin Yes -Necrosis Amt Small (1-33%) -Necrotic Tissue Type Adherent Slough -Structure Exposed None/Limited to Skin Breakdown -Texture (Sarahi-wound Skin Appearance) Assessed -Moisture (Sarahi-wound Skin Appearance Assessed,Dry/ ) Scaly -Color (Sarahi-wound Skin Appearance) No Abnormality, Assessed -Temperature (Sarahi-wound Skin No Abnormality Appearance) (Pt Warm) -Tenderness on Palpation (Sarahi-wound No Skin Appearance) -Ulcer Cleansing Rinsed/ Irrigated with Saline -Foul Odor after Cleansing No -Anesthetic Used 5% Lidocaine Gel WC - Nurse 2 - General Ulcer CM Notes Start: 09/07/19 15:38 Freq: Status: Active Protocol: Activity Type Activity Date Activity User E-Sign Co-Sign Detail Recorded Client Recorded Date Recorded By Document 09/07/19 16:00 DV [id number] 09/07/19 16:14 DV 09/07/19 16:00 Wound Center Nurse 2 [Procedure/Treatment] #2 Right Elbow -Time 16:02 -Correct Patient Yes -Correct Side, Site, Position Yes -Correct Procedure Yes -Procedure Performed Yes -Type of Procedure Debridement -Clinical Debridement Subcutaneous -Post Debridement Size (cm) - Length 0.2 -Post Debridement Size (cm) - Width 0.4 -Post Debridement Size (cm) - Depth 0.1 -Total Square Cm 0.08 -Wound/Ulcer Outcome Not Healed -Ulcer Cleansing Rinsed/ Irrigated with Saline -Foul Odor after Cleansing No -Bioengineered Tissue No -Bleeding Controlled with Pressure -Offloading No -Treatment Response Procedure Tolerated Well #1 right superior forearm -Time 16:02 -Correct Patient Yes -Correct Side, Site, Position Yes -Correct Procedure Yes -Procedure Performed Yes -Type of Procedure Debridement -Clinical Debridement Subcutaneous -Post Debridement Size (cm) - Length 0.5 -Post Debridement Size (cm) - Width 0.4 -Post Debridement Size (cm) - Depth 0.1 -Total Square Cm 0.20 -Wound/Ulcer Outcome Not Healed -Ulcer Cleansing Rinsed/ Irrigated with Saline -Foul Odor after Cleansing No -Bioengineered Tissue No -Bleeding Controlled with Pressure -Offloading No -Treatment Response Procedure Tolerated Well [See Physician Procedure note for Specifics] Pain Scale: 0-10 Numeric [Pain] -Is Patient Pain Free? Yes Psych/Mental Status: Normal Affect, Appropriate Debridement Note Post-Debridement Measurements/Treatment WC - Nurse 2 - General Ulcer CM Notes Start: 09/07/19 15:38 Freq: Status: Active Protocol: Activity Type Activity Date Activity User E-Sign Co-Sign Detail Recorded Client Recorded Date Recorded By Document 09/07/19 16:00 DV [id number] 09/07/19 16:14 DV 09/07/19 16:00 Wound Center Nurse 2 #2 Right Elbow -Time 16:02 -Correct Patient Yes -Correct Side, Site, Position Yes -Correct Procedure Yes -Procedure Performed Yes -Type of Procedure Debridement -Clinical Debridement Subcutaneous -Post Debridement Size (cm) - Length 0.2 -Post Debridement Size (cm) - Width 0.4 -Post Debridement Size (cm) - Depth 0.1 -Total Square Cm 0.08 -Wound/Ulcer Outcome Not Healed -Ulcer Cleansing Rinsed/ Irrigated with Saline -Foul Odor after Cleansing No -Bioengineered Tissue No -Bleeding Controlled with Pressure -Offloading No -Treatment Response Procedure Tolerated Well #1 right superior forearm -Time 16:02 -Correct Patient Yes -Correct Side, Site, Position Yes -Correct Procedure Yes -Procedure Performed Yes -Type of Procedure Debridement -Clinical Debridement Subcutaneous -Post Debridement Size (cm) - Length 0.5 -Post Debridement Size (cm) - Width 0.4 -Post Debridement Size (cm) - Depth 0.1 -Total Square Cm 0.20 -Wound/Ulcer Outcome Not Healed -Ulcer Cleansing Rinsed/ Irrigated with Saline -Foul Odor after Cleansing No -Bioengineered Tissue No -Bleeding Controlled with Pressure -Offloading No -Treatment Response Procedure Tolerated Well Pain Scale: 0-10 Numeric Is Patient Pain Free? Yes Wound debrided: right elbow Laterality: Right Type of Debridement: Excisional debridement Anesthesia Used: 4% Lidocaine Solution, 5% Lidocaine Gel Depth: Down to and including healthy tissue, in the subcutaneous layer Percentage of wound debrided: 100 Instrument Used: 3mm curette Tissue Removed: yellow slough, devitalized tissue Severity: Fat Layer Exposed Amount of bleeding with debridement: Mild Bleeding Controlled with: Compression and gauze Patient tolerated procedure well - Additional Wound Wound debrided: right superior forearm Laterality: Right Type of Debridement: Excisional debridement Anesthesia Used: 4% Lidocaine Solution, 5% Lidocaine Gel Depth: Down to and including healthy tissue, in the subcutaneous layer Percentage of wound debrided: 100 Instrument Used: 3mm curette Tissue Removed: yellow slough, devitalized tissue Severity: Fat Layer Exposed Amount of bleeding with debridement: Mild Bleeding Controlled with: Compression and gauze Patient tolerated procedure: Patient tolerated procedure well Assessment/Plan Active Problems 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 She is taking levofloxacin and has 3 days left. She will continue to use collagen hydrogel and adaptic covered with gauze but increase use to twice daily. Call if increased erythema, drainage, bleeding or odor. Encouraged to increase protein intake in diet, smoking cessation encouraged as well. Pre-albumin normal. Biopsy results reviewed and showed prurigo nodularis. F/U in 2 weeks at patient's request due to work schedule.
[2019-09-21 15:40] VITALS: BP 156/102; PULSE 91; RESP 18; TEMP 35.8; BMI 20.8
--- NOTE | 2019-09-23 19:48 | PN.PCM_ITS ---
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 9 months. She reports that she developed an erythematous lesion which opened and was not healing approx. 1 year ago and was punch biopsied by her PCP several months ago and has never healed. She does not know what the biopsy showed but was done to r/o skin cancer which she reports that it did not show skin cancer and that she was being treated for psoriasis with steroid cream but there has been no improvement. She was referred to see Dr. Eduardo after being seen in [facility] ER and having IV antibiotic treatment x 2 doses and then given oral Bactrim which she has continued to take for the last 3 weeks. She had an xray in Dr. Eduardo's office which did not show infection in the bone per patient. She states that the pain and redness has improved since antibiotic treatment but the wound still has not changed. Denies drainage currently but there was when she went to ER. She has not been dressing the wound with anything but has been applying the steroid cream. She denies any fever, chills or signs of systemic infection. Progress of Wound: Chanda is here for follow up of nonhealing surgical wound. Her wound is healed. She denies any pain. Her elbow above the wound is still erythematous but is not draining. Denies any fever or chills, odor or increased drainage. - Physical Exam Vital Signs Temp Pulse Resp BP 96.4 F L 91 18 156/102 H 09/21/19 15:40 09/21/19 15:40 09/21/19 15:40 09/21/19 15:40 General: Alert, Oriented x3, Cooperative, No apparent distress HEENT: Atraumatic, Normocephalic Oral: Moist Mucosa Neck: Supple Skin: Ulcer/ Wound Wound Measurements and Assessment WC - Nurse 1 - General Ulcer Measurement Start: 09/07/19 15:38 Freq: Status: Active Protocol: Activity Type Activity Date Activity User E-Sign Co-Sign Detail Recorded Client Recorded Date Recorded By Document 09/21/19 15:40 RB [id number] 09/21/19 15:44 RB 09/21/19 15:40 Wound Center Nurse 1 [Ulcer Assessment] #2 Right Elbow -Combined with other wound No -Current Size (cm) - Length 0.3 -Current Size (cm) - Width 0.6 -Current Size (cm) - Depth 0.1 -Total Square Cm 0.18 -Tunneling No -Undermining/Tunneling No -Circular Undermining No -Exudate Amt Small -Exudate Type Serosanguineous -Wound Margin Flat & Intact -Granulation Amt None Present (0 %) -Slough/Fibrin Yes -Necrosis Amt Large (67-100%) -Necrotic Tissue Type Adherent Slough -Structure Exposed N/A -Texture (Sarahi-wound Skin Appearance) Assessed -Moisture (Sarahi-wound Skin Appearance Assessed ) -Color (Sarahi-wound Skin Appearance) Assessed -Temperature (Sarahi-wound Skin No Abnormality Appearance) (Pt Warm) -Tenderness on Palpation (Sarahi-wound No Skin Appearance) -Ulcer Cleansing Wound Cleanser -Foul Odor after Cleansing No -Anesthetic Used 4% Lidocaine Solution #1 right superior forearm -Combined with other wound No -Current Size (cm) - Length 0.6 -Current Size (cm) - Width 0.6 -Current Size (cm) - Depth 0.1 -Total Square Cm 0.36 -Tunneling No -Undermining/Tunneling No -Circular Undermining No -Exudate Amt None Present -Wound Margin Distinct, Outline Attached -Granulation Amt None Present (0 %) -Slough/Fibrin Yes -Necrosis Amt Large (67-100%) -Necrotic Tissue Type Adherent Slough -Texture (Sarahi-wound Skin Appearance) Assessed -Moisture (Sarahi-wound Skin Appearance Assessed ) -Color (Sarahi-wound Skin Appearance) Assessed -Temperature (Sarahi-wound Skin No Abnormality Appearance) (Pt Warm) -Tenderness on Palpation (Sarahi-wound No Skin Appearance) -Ulcer Cleansing Wound Cleanser -Foul Odor after Cleansing No -Anesthetic Used 4% Lidocaine Solution AKUA - Nurse 2 - General Ulcer CM Notes Start: 09/07/19 15:38 Freq: Status: Active Protocol: Activity Type Activity Date Activity User E-Sign Co-Sign Detail Recorded Client Recorded Date Recorded By Document 09/21/19 16:06 DV [id number] 09/21/19 16:23 DV 09/21/19 16:06 Wound Center Nurse 2 [Procedure/Treatment] #2 Right Elbow -Time 16:08 -Correct Patient Yes -Correct Side, Site, Position Yes -Correct Procedure No -Procedure Performed No -Post Debridement Size (cm) - Length 0 -Post Debridement Size (cm) - Width 0 -Post Debridement Size (cm) - Depth 0 -Total Square Cm 0 -Wound/Ulcer Outcome Healed- Epithelialized -Bleeding Controlled with Pressure -Offloading No -Treatment Response Procedure Tolerated Well #1 right superior forearm -Time 16:07 -Correct Patient Yes -Correct Side, Site, Position Yes -Correct Procedure No -Procedure Performed No -Post Debridement Size (cm) - Length 0 -Post Debridement Size (cm) - Width 0 -Post Debridement Size (cm) - Depth 0 -Total Square Cm 0 -Wound/Ulcer Outcome Healed- Epithelialized -Bleeding Controlled with Pressure [See Physician Procedure note for Specifics] Pain Scale: 0-10 Numeric [Pain] -Is Patient Pain Free? Yes Musculoskeletal: - - right olecranon bursa swollen but nontender Psych/Mental Status: Normal Affect, Appropriate Debridement Note Post-Debridement Measurements/Treatment - Nurse 2 - General Ulcer CM Notes Start: 09/07/19 15:38 Freq: Status: Active Protocol: Activity Type Activity Date Activity User E-Sign Co-Sign Detail Recorded Client Recorded Date Recorded By Document 09/07/19 16:00 DV [id number] 09/07/19 16:14 DV Document 09/21/19 16:06 DV [id number] 09/21/19 16:23 DV 09/07/19 09/21/19 16:00 16:06 Wound Center Nurse 2 #2 Right Elbow -Time 16:02 16:08 -Correct Patient Yes Yes -Correct Side, Site, Position Yes Yes -Correct Procedure Yes No -Procedure Performed Yes No -Type of Procedure Debridement -Clinical Debridement Subcutaneous -Post Debridement Size (cm) - Length 0.2 0 -Post Debridement Size (cm) - Width 0.4 0 -Post Debridement Size (cm) - Depth 0.1 0 -Total Square Cm 0.08 0 -Wound/Ulcer Outcome Not Healed Healed- Epithelialized -Ulcer Cleansing Rinsed/ Irrigated with Saline -Foul Odor after Cleansing No -Bioengineered Tissue No -Bleeding Controlled with Pressure Pressure -Offloading No No -Treatment Response Procedure Procedure Tolerated Well Tolerated Well #1 right superior forearm -Time 16:02 16:07 -Correct Patient Yes Yes -Correct Side, Site, Position Yes Yes -Correct Procedure Yes No -Procedure Performed Yes No -Type of Procedure Debridement -Clinical Debridement Subcutaneous -Post Debridement Size (cm) - Length 0.5 0 -Post Debridement Size (cm) - Width 0.4 0 -Post Debridement Size (cm) - Depth 0.1 0 -Total Square Cm 0.20 0 -Wound/Ulcer Outcome Not Healed Healed- Epithelialized -Ulcer Cleansing Rinsed/ Irrigated with Saline -Foul Odor after Cleansing No -Bioengineered Tissue No -Bleeding Controlled with Pressure Pressure -Offloading No -Treatment Response Procedure Tolerated Well Pain Scale: 0-10 Numeric Is Patient Pain Free? Yes Yes Wound debrided: right elbow Laterality: Right No debridement was completed today - Additional Wound Wound debrided: right superior forearm Laterality: Right Operative Diagnosis: no debridement completed. Patient healed Assessment/Plan Assessment: nonhealing surgical wound Plan: Chanda's wound was evaluated and she is healed. She will continue to use collagen hydrogel and will use vaseline to her elbows several times daily. Call if increased erythema, drainage, bleeding or odor. Encouraged to increase protein intake in diet, smoking cessation encouraged as well. She will be discharged at this time and will follow up as needed.
== END 2019-09-22 23:59 ==
LOC: WC 16:00
PROVIDERS: Referring Provider Family Medicine; Visit Provider Family Medicine
DX: T81.89XA Other complications of procedures, not elsewhere classified, initial encounter (principal); Y83.9 Surgical procedure, unspecified as the cause of abnormal reaction of the patient, or of later complication, without mention of misadventure at the time of the procedure; L03.113 Cellulitis of right upper limb; L28.1 Prurigo nodularis
CPT/HCPCS: 11042; 99212; G0463

== ENCOUNTER 2022-10-21 14:06 | Observation (INO) | payer MEDICARE, OTHER, SELFPAY ==
[2022-10-21] VITALS (12 sets, daily range): BP systolic 110–153; BP diastolic 66–95; PULSE 63–92; RESP 15–18; TEMP 36.2–36.8; O2SAT 92–100; BMI 17.6
--- NOTE | 2022-10-21 | BON_PTH ---
PATIENT: DORINDA SHETTY LOC: MS3 U#:[id number] AGE/SX: 66/F ROOM: [facility] [place] RE10/21/[address]: Dr. Vidal Mccall DO : 1955 BED: 1 DIS: 10/22/2022 SPEC #: [id number] RECD: 10/21/22 14:14 STATUS: KELSY NOLAN #: [id number] YEN: 10/21/22 00:[address]: Vidal Mccall DEPT: SURGICAL PATHOLOGY RECD BY: Bebeto Monsalve ENTERED: 10/22/22 10:09 SP TYPE: Bone OTHR DR: DO Dr. Lewis Dye MD Tissues: Bone of forearm, NOS Procedures: Decalcification bone/plaque Surgery Specimen Level V HEADER OPERATION: Elbow irrigation debridement with excision bursa PRE-OP DIAGNOSIS: Olecranon bursitis left elbow TISSUE SUBMITTED: Left olecranon bone biopsy MICROSCOPIC DIAGNOSIS Left olecranon bone, bone biopsy: Fragments of bone with focal reparative and reactive change. AM:latia 10/25/2022 MICROSCOPIC DESCRIPTION Slides are reviewed. GROSS DESCRIPTION Received in fixative is one container labeled with the patient's name and designated left olecranon bone biopsy. The specimen consists of multiple irregular fragments of schaefer bone that in aggregate measure 1.0 x 0.5 x 0.2 cm. The specimen is totally submitted in one cassette after decalcification. / AM:latia 10/22/2022 TC:4 CPT: 07279, 84863
[2022-10-21] MEDS: Lactated Ringers 1,000 ML 15 ML IV (12:22)
[2022-10-21] MEDS: Cefazolin 2 GM in 0.9% Normal Saline 100 ML IV (12:59)
[2022-10-21] MEDS: Bupivacaine 0.25% 30 ML Vial (13:40)
[2022-10-21] MEDS: Vancomycin IV 1,000 MG/20 ML Vial 1000 MG OPERA.SITE (13:40)
--- NOTE | 2022-10-21 14:15 | PCM.OPRPT ---
Report of Operation Date of Procedure: 10/21/22 Description of Surgical Findings:: Preoperative diagnosis: 1. 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 Partial distal triceps tendon tear Postoperative diagnosis: 1. 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 Partial distal triceps tendon tear Procedure: 1. Left septic olecranon bursectomy with irrigation and debridement 2. Left olecranon corticotomy with bone biopsy, irrigation and debridement 3. Application of incisional Prevena wound VAC Surgeon: Vidal Mccall DO An Employee Sponsor Or Advocate And: MICHA Navarro Anesthesia: General endotracheal Anesthesiologist: Dr. Reyes Complications: None apparent Drains: None Estimated blood loss: 75 cc Urinary output: None IV fluids: 900 cc crystalloid Specimens: 1-olecranon bursa sent for culture 2-olecranon bone biopsy sent for permanent specimen 3-olecranon bone biopsy sent for culture Surgical implants: None Surgical indications: This is a 66-year-old female seen in the outpatient setting. She was following with my partner Dr. Eduardo for left septic olecranon bursitis. She has been treated for several weeks with oral antibiotics. There has been improvement with overlying cellulitis but persistent fluctuance. MRI was obtained and demonstrated olecranon bursitis suspected septic, edema in the olecranon suspicious for osteomyelitis and partial tearing of her triceps tendon. She had no short arc range of motion pain and little concern for septic arthritis. She reported no constitutional symptoms. Of note, patient had a previous right olecranon bursectomy several years ago she is done well with, however delayed wound healing was noted. Dr. Eduardo referred patient to myself for surgical intervention. Due to the failure of oral antibiotics and concern for septic arthritis, I recommended surgical intervention in the form of left septic olecranon bursectomy, irrigation debridement, debridement of olecranon with bone biopsy. I recommended observing the partial triceps tear due to concern for deep infection and hardware placement being a nidus for persistent infection. The risks, benefits, alternatives to the procedure reviewed with patient at length. Informed consent was obtained in the office. Risks of the procedure included but were not limited to bleeding, persistent infection, loss of life or limb, persistent swelling, persistent pain, neurovascular injury, DVT or PE, tendon injury, wound complications, stiffness. Description of procedure: Patient was seen in preoperative holding area. She was identified by name, medical record number, date of . The operative extremity was marked with a surgical marker. We confirmed informed consent with the patient and all questions were answered to her satisfaction. Anesthesia consent was also obtained by the anesthesia team prior to procedure. At time of her procedure, patient was brought to the operative suite and positioned supine on a standard operating table. 2 g Ancef was administered room time. General anesthesia was induced and laryngeal mask airway placed. All bony prominences well-padded. Patient was positioned in lateral decubitus position with the left side up. An axillary roll was placed. Fibular head was free on the down leg. All bony prominences were well-padded in the lateral decubitus position. We positioned the patient in the lateral decubitus position utilizing a beanbag. The operative extremity was brought over a radiolucent post. We then prepped and draped the left upper extremity in normal, sterile orthopedic fashion after spending the bed 90 degrees. We performed a timeout with all parties in attendance in agreement with the side, site, operation to be performed. No concerns were voiced elected proceed with surgery. I planned a curvilinear incision over the olecranon curving slightly radial. There was a healing wound overlying the tip of the olecranon which I plan to ellipticized. Skin and subcutaneous tissue was sharply dissected with a 15 blade scalpel. 1 x 1 cm central wound was ellipticized and excised. I developed the plane between the subcutaneous tissue and the bursa. Bursa was entered and no fluid was encountered. I then performed a bursectomy elevating the bursa from the underlying triceps fascia. Triceps fascia was left intact. Just distal to the triceps insertion, I cauterized periosteum down to bone. I then drilled a unicortical hole to perform a corticotomy to obtain a bone biopsy as well as debride the area of concern on MRI for possible osteomyelitis. Reamings in the drill bit as well as cancellous bone retrieved with a curved curette was sent for permanent specimen and culture. Bone was normal with regards to mechanical properties and normal in appearance. There was no intraosseous purulence encountered. Wound was then copiously irrigated normal saline solution via cystoscopy tubing, 3 L total. I anesthetized the skin flaps and surrounding tissues with 10 cc 0.25% plain bupivacaine. Hemostasis was excellent. I then placed 0.5 g of powdered vancomycin in the wound and in the cancellous bone of the olecranon. I then utilized a 0 PDS to reduce space by reapproximating the subcutaneous tissue to both the triceps fascia and the ulnar periosteum. Dermis was reapproximated with 3-0 Monocryl suture. Skin was finally reapproximated with simple 3-0 nylon suture. A Prevena incisional wound VAC was then applied with good suction seal. A well-padded posterior elbow fiberglass splint was then applied with the wrist free in 90 degrees of elbow flexion. Patient was then repositioned in the supine position. See it was safely extubated in the operative suite and transferred to her gurney and subsequently to PACU in stable condition. Post Operative Plan: Patient will be placed in observation tonight. Infectious disease has been consulted for antibiotic recommendations. Cultures pending. IV vancomycin and Zosyn ordered as preliminary broad-spectrum coverage. Weightbearing: Nonweightbearing operative extremity Antibiotics: Ancef 2 g x 1 dose preoperatively, continue doxycycline twice daily for 7 days postoperatively DVT Prophylaxis: Early ambulation, aspirin 81 mg twice daily x2 weeks [place]: None Dressing: Maintain splint until follow-up keep in a clean, dry and intact. X-Rays: None Pain Medication: Oxycodone ordered as needed, scheduled Tylenol and Celebrex Follow-up: 1 week post-operatively with me in the office for wound check
[2022-10-21 14:49] LABS: Hematocrit 32.3 % (37-47); Hemoglobin 11.1 g/dL (12.0-15.0); Mean Corp Hgb Conc 34.4 g/dL (32-36); Mean Corpuscular Hgb 36.8 pg (27.0-32.0); Mean Platelet Vol. 8.6 fl (6.2-12.0); Platelet Count 308 K/mm3 (150-450); RBC Distribution Width CV 12.6 % (11.6-14.6); RBC Distribution Width SD 49.5 fl (35.1-43.9); Red Blood Count 3.02 M/mm3 (4.2-5.4); White Blood Count 5.7 K/mm3 (4.4-11.0)
[2022-10-21] MEDS: Lactated Ringers 1,000 ML 125 ML IV (15:49)
[2022-10-21 16:17] LABS: Anion Gap 5 (5-15); BUN 8 mg/dL (7-18); BUN/Creat Ratio 12.5 RATIO (10-20); Calcium,Total 8.7 mg/dL (8.5-10.1); Chloride 103 mmol/L (98-107); Creatinine, Serum 0.64 mg/dL (0.55-1.02); EST Glomerular Filtration Rate 98 mL/min (>60); Est Glom Filt Rate - Afr Amer 119 mL/min (>60); Estimated Creatinine Clearance 41.99 ml/min; Glucose 91 mg/dL (74-106); Potassium 3.6 mmol/L (3.5-5.1); Sodium Level 134 mmol/L (136-145)
[2022-10-21] MEDS: oxyCODONE 5 MG Tablet 10 MG PO (16:43)
--- NOTE | 2022-10-21 17:37 | PCM.RX.CS ---
Consult Pharmacy has been consulted to manage selected antiobiotic: Vancomycin Type of Consult: New start Prior Doses of Antibiotics Received/Current Regimen: Medications Discontinued Medications Vancomycin HCl 750 mg/ Sodium (Chloride) 265 mls @ 250 mls/hr IV X1 ONE Stop: 10/21/22 17:03 Last Admin: 10/21/22 16:41 Dose: 250 mls/hr Labs: Sodium 134 mmol/L (136-145) L 10/21/22 15:40 Potassium 3.6 mmol/L (3.5-5.1) 10/21/22 15:40 Chloride 103 mmol/L (98-107) 10/21/22 15:40 Carbon Dioxide 26.0 mmol/L (21.0-32.0) 10/21/22 15:40 Anion Gap 5 (5-15) 10/21/22 15:40 BUN 8 mg/dL (7-18) 10/21/22 15:40 Creatinine 0.64 mg/dL (0.55-1.02) 10/21/22 15:40 Est GFR (MDRD) Af Amer 119 mL/min (>60) 10/21/22 15:40 Est GFR (MDRD) Non-Af 98 mL/min (>60) 10/21/22 15:40 BUN/Creatinine Ratio 12.5 RATIO (10-20) 10/21/22 15:40 Glucose 91 mg/dL (74-106) 10/21/22 15:40 Weight used for dosin kg Estimated Creatinine Clearance: 77 Goal Trough: 10-15 mcg/mL Pharmacy Plan for Drug Dosinmg IV x1, 500mg IV q12h with trough prior to 4th dose per policy. Pharmacy Service will continue to monitor and adjust dosing as required. Follow-Up Labs: Trough Vancomycin - 10/23 @ [id number]
[2022-10-21] MEDS: Ipratropium/Albuterol Sulfate 3 ML AMPUL.NEB INHALATION (19:55)
[2022-10-21] MEDS: Celecoxib 100 MG Capsule PO (22:00)
[2022-10-21] MEDS: Aspirin 81 MG TAB.CHEW PO (22:00)
[2022-10-21] MEDS: Acetaminophen 500 MG Tablet 1000 MG PO (22:00)
[2022-10-21] MEDS: Doxazosin 4 MG Tablet PO (22:00)
[2022-10-22] VITALS (8 sets, daily range): BP systolic 118–152; BP diastolic 66–70; PULSE 73–93; RESP 18–20; TEMP 35.5–37.2; O2SAT 92–97; BMI 17.6
[2022-10-22] MEDS: oxyCODONE 5 MG Tablet 10 MG PO ×2 (00:16→09:34)
[2022-10-22] MEDS: Acetaminophen 500 MG Tablet 1000 MG PO ×2 (05:15→14:10)
[2022-10-22] MEDS: Vancomycin IV 500 MG/100 ML BAG 100 MG IV (05:15)
[2022-10-22 07:14] LABS: Albumin, Serum 2.4 g/dL (3.2-5.0)
[2022-10-22 07:16] LABS: Anion Gap 5 (5-15); BUN 8 mg/dL (7-18); BUN/Creat Ratio 11.5 RATIO (10-20); Calcium,Total 8.1 mg/dL (8.5-10.1); Chloride 104 mmol/L (98-107); Creatinine, Serum 0.69 mg/dL (0.55-1.02); EST Glomerular Filtration Rate 89 mL/min (>60); Est Glom Filt Rate - Afr Amer 108 mL/min (>60); Estimated Creatinine Clearance 41.99 ml/min; Glucose 98 mg/dL (74-106); Potassium 4.1 mmol/L (3.5-5.1); Sodium Level 131 mmol/L (136-145)
--- NOTE | 2022-10-22 07:19 | PCM.PN.ORT ---
Subjective Subjective Patient seen and examined. Reports soreness in her left elbow otherwise denies new complaints. Denies fevers, chills, nausea vomiting, chest pain or shortness of breath. Patient anxious to return home. Objective Data Objective Data Vital Signs: Vital Signs Temp Pulse Resp BP Pulse Ox O2 Del Method 96 F L 93 18 140/66 H 92 Room Air 10/22/22 04:45 10/22/22 04:45 10/22/22 04:45 10/22/22 04:45 10/22/22 04:45 10/22/22 04:45 Oxygen Delivery Method Room Air Weight: 108 lb 14.534 oz Body Mass Index (BMI) 17.6 Intake & Output: Intake and Output for Last 24 Hours 10/20/22 10/21/22 10/22/22 23:59 23:59 23:59 Intake Total 2597.92 / 2597.92 150 / 150 Balance 2597.92 / 2597.92 150 / 150 Lab / Micro Data Result Diagrams: 10/21/22 14:41 10/22/22 06:17 Labs: Laboratory Results - last 24 hr 10/21/22 14:41: WBC 5.7, RBC 3.02 L, Hgb 11.1 L, Hct 32.3 L, MCV 107.0 H, MCH 36.8 H, MCHC 34.4, RDW Std Deviation 49.5 H, RDW Coeff of [place] 12.6, Plt Count 308, MPV 8.6 10/21/22 15:40: Sodium 134 L, Potassium 3.6, Chloride 103, Carbon Dioxide 26.0, Anion Gap 5, BUN 8, Creatinine 0.64, Estim Creat Clear Calc 41.99, Est GFR (MDRD) Af Amer 119, Est GFR (MDRD) Non-Af 98, BUN/Creatinine Ratio 12.5, Glucose 91, Calcium 8.7 10/22/22 06:17: Sodium 131 L, Potassium 4.1, Chloride 104, Carbon Dioxide 22.0, Anion Gap 5, BUN 8, Creatinine 0.69, Estim Creat Clear Calc 41.99, Est GFR (MDRD) Af Amer 108, Est GFR (MDRD) Non-Af 89, BUN/Creatinine Ratio 11.5, Glucose 98, Calcium 8.1 L 10/22/22 06:17: Albumin 2.4 L Physical Exam Narrative General - A&Ox3, NAD. VSS/AF. Left upper Extremity - SILT & 5 motor intact 5 in radial, ulnar, musculocutaneous, axillary, and median nerve distributions. Radial, ulnar pulses 2+. Compartments soft and compressible. BCR in finger tips. Splint in place, clean dry and intact. Incisional wound VAC in place with good suction seal with no drainage. Assessment & Plan Assessment/Plan (1) Olecranon bursitis of both elbows: PLAN: POD#1 s/p left septic olecranon bursectomy, I&D, olecranon bone biopsy - Pain control -Infectious disease consulted. Intraoperative cultures pending. Currently on vancomycin and Zosyn IV. Appreciate infectious disease recommendations - DVT PPX -aspirin 81 mg twice daily. - Case management - D/C planning -Patient stable for discharge once antibiotic recommendations are finalized.
[2022-10-22] MEDS: Ipratropium/Albuterol Sulfate 3 ML AMPUL.NEB INHALATION ×2 (07:37→12:17)
[2022-10-22] MEDS: Metoprolol(XL)Succ 50 MG Tablet PO (09:28)
[2022-10-22] MEDS: Aspirin 81 MG TAB.CHEW PO (09:28)
[2022-10-22] MEDS: Celecoxib 100 MG Capsule PO (09:28)
[2022-10-22] MEDS: Ensure Clear 120 ML Liquid PO ×2 (09:38→14:10)
--- NOTE | 2022-10-22 10:12 | CASEMGMT ---
QI VIVAR Assessment: Face to Face with pt for initial transition planning/care coordination assessment. QI VIVAR introduced self and role at [facility], pt voices understanding and consents to assessment. Pt is A/O x4 and answers all questions appropriately at this time. Pt sitting up in bed in no distress. Care providers, pharmacy, and demographics verified/updated. Admitting Dx: left irrigation debridement with excision bursa PCP:Moe Specialists:Stefany, ortho; pain mgmt in [place], pt is not sure of name Preferred Pharmacy: [facility] Insurance: [facility], [place] Prescription Benefit: yes LNOK: Beto Guerra, cousin; Ryne Sari, Living Arrangements: Pt lives with her and son in a two story home with 1 step to enter without a rail. Pt reports she was I in ADL's and her is able to help her post surgery. Transportation: Pt or son will provide transportation until pt can drive again. DME/HHC/SNF: Pt has a cane and walker but does not use. Pt denies hx of HHC or SNF stays. Pt states no concerns with going home at time of dc. Pt states no further concerns/needs. CM to follow. Advised pt to ask CM if any further question/concerns/needs arise, voices understanding. Pt Goal: Home Plan: Home, will follow ID rec.
--- NOTE | 2022-10-22 10:18 | CASEMGMT ---
QI CM in to discuss VALE form with patient. RN CM explained VALE form, patient voiced understanding. Pt signed form and filed in chart. Pt provided with a copy of signed VALE form. Patient had no further questions or concerns at this time.
--- NOTE | 2022-10-22 14:59 | CON.PCM.ID_ITS ---
Assessment & Plan Assessment/Plan (1) Olecranon bursitis of left elbow: PLAN: Now s/p OR 10/21/[address] Mccall for I&D. Surg cx neg so far. Had improvement with 2 weeks of bactrim prior to OR. MRI reported with possible osteo. Bone appeared normal in OR, path and cx pending. Ok for home with 4 weeks po bactrim and omnicef, wrote rx, ID followup in 3 weeks to determine final duration. Will follow, thank you HPI Consult Data Date of Consult: 10/22/22 HPI Narrative Reason for Consultation: bursitis HPI Narrative: DORINDA SHETTY, is a 66 F who presented with one year L elbow progressive pain, redness, swelling, intermittent drainage which turned purulent over past few weeks. Similar issues with R elbow a few years ago. No fever or chills. Pain was severe. Put on bactrim for past two weeks as outpt with some improvement in redness and swelling. Taken to OR 10/21/22 for I&D by Dr. Mccall. Feeling better today. Full ROS performed and neg except as noted above. PFSH Medical History Anxiety Arthritis Back pain COPD (chronic obstructive pulmonary disease) Emphysema, unspecified High cholesterol History of steroid therapy Hypertension Post-menopausal Smoker Home Medications albuterol sulfate 90 mcg/actuation aerosol inhaler 2 puff inhalation PRN PRN COPD 10/15/22 [History Last Taken Unknown] calcium 500 mg tablet 500 mg PO DAILY 10/15/22 [History Last Taken Unknown] celecoxib 200 mg capsule 200 mg PO DAILY 10/15/22 [History Last Taken Unknown] cholecalciferol (vitamin D3) 25 mcg (1,000 unit) tablet (Vitamin D3) 25 mcg PO DAILY 10/15/22 [History Last Taken Unknown] cyanocobalamin (vitamin B-12) 50 mcg tablet (Vitamin B-12) 50 mcg PO DAILY 09/23 11/14 [History Last Taken Unknown] hydroxyzine HCl 25 mg tablet 25 mg PO PRN PRN Anxiety 10/15/22 [History Last Taken Unknown] metoprolol succinate 50 mg tablet,extended release 24 hr 50 mg PO DAILY 10/15/22 [History Last Taken 10/21/22] terazosin 5 mg capsule 5 mg PO QHS 10/15/22 [History Last Taken Unknown] umeclidinium 62.5 mcg-vilanterol 25 mcg/actuation powdr for inhalation (Anoro Ellipta) 1 inh inhalation DAILY 10/15/22 [History Last Taken Unknown] cefdinir 300 mg capsule 300 mg PO BID #60 caps 10/22/22 [Rx Last Taken Unknown] sulfamethoxazole 800 mg-trimethoprim 160 mg tablet 1 tab PO BID 30 days #60 tabs 10/22/22 [Rx Last Taken 10/21/22] Allergy/AdvReac Type Severity Reaction Status Date / Time doxycycline Allergy Other Verified 10/21/22 12:17 prednisone AdvReac Unknown Verified 10/21/22 12:17 Surgical History (Updated 10/15/22 @ 14:13 by Kathryn Castillo) Hx of elbow surgery Hx of tonsillectomy Social History Smoking Status: Current every day smoker tobacco type: cigarettes Physical Exam Const alert, oriented x3 and no apparent distress General Appearance: cooperative HEENT normocephalic and head/scalp atraumatic Neck supple and No nodes Resp normal air movement and clear to auscultation bilaterally Cardio regular rate and regular rhythm GI soft to palpation, non-tender and non-distended Extremity General Extremity: Negative for edema Skin no rashes or lesions noted Skin Narrative: LUE wrapped Neuro CN's II-XII intact bilaterally Lab / Micro Data Attestation: I reviewed the patient's lab results. Result Diagrams: 10/21/22 14:41 10/22/22 06:17 Labs: Laboratory Results - last 24 hr 10/21/22 15:40: Sodium 134 L, Potassium 3.6, Chloride 103, Carbon Dioxide 26.0, Anion Gap 5, BUN 8, Creatinine 0.64, Estim Creat Clear Calc 41.99, Est GFR (MDRD) Af Amer 119, Est GFR (MDRD) Non-Af 98, BUN/Creatinine Ratio 12.5, Glucose 91, Calcium 8.7 10/22/22 06:17: Sodium 131 L, Potassium 4.1, Chloride 104, Carbon Dioxide 22.0, Anion Gap 5, BUN 8, Creatinine 0.69, Estim Creat Clear Calc 41.99, Est GFR (MDRD) Af Amer 108, Est GFR (MDRD) Non-Af 89, BUN/Creatinine Ratio 11.5, Glucose 98, Calcium 8.1 L 10/22/22 06:17: Albumin 2.4 L Micro: Microbiology 10/21/22 13:36 Biopsy - Bone Gram Stain - Final 10/21/22 13:36 Biopsy - Bone Wound Culture - Preliminary No growth-Final to follow 10/21/22 13:35 Tissue - Bursa Gram Stain - Final 10/21/22 13:35 Tissue - Bursa Wound Culture - Preliminary No growth-Final to follow
--- NOTE | 2022-10-22 15:35 | PCM.DC.SUM ---
Providers Date of Admission: 10/21/22 Primary Care Physician: Dr. Alin Rosa DO Consultations 10/21/22 14:06 Consult: Infectious Disease Routine Consulting Provider: Lewis Pena Reason for Consult: Left septic olecranon bursitis, questionable olcecranon osteomyelitis. EMERGENT Consult: No MD Notified: Yes Date Notified: 10/21/22 Time Notified: 15:01 Method of Notification: Text Reason For Visit: lt irrigation debridement with excision bursa Diagnosis Discharge Diagnosis (1) Olecranon bursitis of left elbow: Status: Acute Code(s): M70.22 - Olecranon bursitis, left elbow (2) Olecranon bursitis of both elbows: Status: Chronic Code(s): M70.21 - Olecranon bursitis, right elbow; M70.22 - Olecranon bursitis, left elbow Plan: POD#1 s/p left septic olecranon bursectomy, I&D, olecranon bone biopsy - Pain control -Infectious disease consulted. Intraoperative cultures pending. Currently on vancomycin and Zosyn IV. Appreciate infectious disease recommendations - DVT PPX -aspirin 81 mg twice daily. - Case management - D/C planning -Patient stable for discharge once antibiotic recommendations are finalized. Medications at Discharge Home Medications albuterol sulfate 90 mcg/actuation aerosol inhaler 2 puff inhalation PRN PRN COPD 10/15/22 calcium 500 mg tablet 500 mg PO DAILY 10/15/22 celecoxib 200 mg capsule 200 mg PO DAILY 10/15/22 cholecalciferol (vitamin D3) 25 mcg (1,000 unit) tablet (Vitamin D3) 25 mcg PO DAILY 10/15/22 cyanocobalamin (vitamin B-12) 50 mcg tablet (Vitamin B-12) 50 mcg PO DAILY 10/15/22 hydroxyzine HCl 25 mg tablet 25 mg PO PRN PRN Anxiety 10/15/22 metoprolol succinate 50 mg tablet,extended release 24 hr 50 mg PO DAILY 10/15/22 terazosin 5 mg capsule 5 mg PO QHS 10/15/22 umeclidinium 62.5 mcg-vilanterol 25 mcg/actuation powdr for inhalation (Anoro Ellipta) 1 inh inhalation DAILY 10/15/22 cefdinir 300 mg capsule 300 mg PO BID #60 caps 10/22/22 oxycodone 5 mg tablet 10 mg PO Q6H PRN PRN Pain Score 6-10 7 days #42 tabs 10/22/22 sulfamethoxazole 800 mg-trimethoprim 160 mg tablet 1 tab PO BID 30 days #60 tabs 10/22/22 Hospital Course Summary of Care Provided Minutes Spent on Discharge: 15 Hospital Course: Patient underwent left septic olecranon bursectomy, I&D with bone biopsy and I&D on 10/21/2022. She was placed in observation for IV antibiotics and infectious disease consultation postoperatively. She was seen by infectious disease and recommended oral antibiotics until final pathology and cultures are obtained. She was able to be safely discharged home on postoperative day #1. No medical or surgical complications were encountered throughout her stay. Physical Exam Narrative General - A&Ox3, NAD. VSS/AF. Left upper Extremity - SILT & 5 motor intact 5 in radial, ulnar, musculocutaneous, axillary, and median nerve distributions. Radial, ulnar pulses 2+. Compartments soft and compressible. BCR in finger tips. Splint in place, clean dry and intact. Incisional wound VAC in place with good suction seal with no drainage. Weight / BMI Weight Weight: 108 lb 14.534 oz Body Mass Index (BMI) 17.6 ABG / Lab / Microbiology Data Result Diagrams: 10/21/22 14:41 10/22/22 06:17 Laboratory: Laboratory Results - last 24 hr 10/21/22 15:40: Sodium 134 L, Potassium 3.6, Chloride 103, Carbon Dioxide 26.0, Anion Gap 5, BUN 8, Creatinine 0.64, Estim Creat Clear Calc 41.99, Est GFR (MDRD) Af Amer 119, Est GFR (MDRD) Non-Af 98, BUN/Creatinine Ratio 12.5, Glucose 91, Calcium 8.7 10/22/22 06:17: Sodium 131 L, Potassium 4.1, Chloride 104, Carbon Dioxide 22.0, Anion Gap 5, BUN 8, Creatinine 0.69, Estim Creat Clear Calc 41.99, Est GFR (MDRD) Af Amer 108, Est GFR (MDRD) Non-Af 89, BUN/Creatinine Ratio 11.5, Glucose 98, Calcium 8.1 L 10/22/22 06:17: Albumin 2.4 L Microbiology: Microbiology 10/21/22 13:36 Biopsy - Bone Gram Stain - Final 10/21/22 13:36 Biopsy - Bone Wound Culture - Preliminary No growth-Final to follow 10/21/22 13:35 Tissue - Bursa Gram Stain - Final 10/21/22 13:35 Tissue - Bursa Wound Culture - Preliminary No growth-Final to follow Meaningful Use Info Meaningful Use Diagnoses (Choose all that apply): None applicable Discharge Plan Admission Admit Date/Time: 10/21/22 14:06 Attending Provider: Vidal Mccall Primary Care Provider: Alin Rosa Consulting Providers: Lewis Pena Instructions Additional Instructions / Restrictions: Maintain splint and surgical dressing left upper extremity until follow-up with Dr. Mccall Discharge Orders/Prescriptions Prescriptions: New cefdinir 300 mg capsule 300 mg PO BID Qty: 60 0RF oxycodone 5 mg Tablet 10 mg PO Q6H PRN PRN (Reason: Pain Score 6-10) 7 Days Qty: 42 0RF Continued celecoxib 200 mg capsule 200 mg PO DAILY Label Comments: TAKE 1 CAPSULE BY MOUTH TWICE A DAY terazosin 5 mg capsule 5 mg PO QHS Label Comments: TAKE 1-2 CAPSULES BY MOUTH EVERY DAY AT BEDTIME FOR 90 DAYS DEPENDING ON BLOOD PRESSURE metoprolol succinate 50 mg tablet extended release 24 hr 50 mg PO DAILY Label Comments: TAKE 1 TABLET BY MOUTH EVERY DAY calcium 500 mg Tablet 500 mg PO DAILY Vitamin B-12 50 mcg Tablet 50 mcg PO DAILY hydroxyzine HCl 25 mg tablet 25 mg PO PRN PRN (Reason: Anxiety) Label Comments: TAKE 1 TABLET BY MOUTH 3 TIMES A DAY FOR 90 DAYS NEEDED FOR ANXIETY albuterol sulfate 90 mcg/actuation HFA aerosol inhaler 2 puff INHALATION PRN PRN (Reason: COPD) Label Comments: INHALE 2 PUFFS EVERY 4 HOURS FOR 90 DAYS NEEDED FOR WHEEZING cholecalciferol (vitamin D3) [Vitamin D3] 25 mcg (1,000 unit) Tablet 25 mcg PO DAILY Anoro Ellipta 62.5-25 mcg/actuation blister with device 1 inh INHALATION DAILY Label Comments: INHALE 1 PUFF EVERY DAY FOR 90 DAYS sulfamethoxazole-trimethoprim 800-160 mg tablet 1 tab PO BID 30 Days Qty: 60 0RF Label Comments: TAKE 1 TABLET BY MOUTH TWICE A DAY Referrals / Follow Up: Alin Rosa DO [Primary Care Provider] - Vidal Mccall DO [Med Staff - Active Staff] - 10/29/22 Disposition Disposition (needs filled in before D/C Order can be placed): Home, Self Care
== END 2022-10-22 16:57 | disposition home or self-care (01) ==
LOC: SDC 14:15 → MS3 14:15
PROVIDERS: Internal Medicine Infectious Disease; Admitting Provider Student in an Organized Health Care Education/Training Program; PCP Student in an Organized Health Care Education/Training Program; Referring Provider Student in an Organized Health Care Education/Training Program; Visit Provider Student in an Organized Health Care Education/Training Program
PROC: (CPT 24105; principal; 2022-10-21 13:20)
DX: M70.22 Olecranon bursitis, left elbow (principal); J43.9 Emphysema, unspecified; I10 Essential (primary) hypertension; E78.00 Pure hypercholesterolemia, unspecified; F17.210 Nicotine dependence, cigarettes, uncomplicated; Z79.899 Other long term (current) drug therapy; R63.6 Underweight; Z68.1 Body mass index [BMI] 19.9 or less, adult; S46.312A Strain of muscle, fascia and tendon of triceps, left arm, initial encounter; X58.XXXA Exposure to other specified factors, initial encounter; F41.9 Anxiety disorder, unspecified
CPT/HCPCS: 24105; 20240; 36415; 80048; 82040; 85027; 87015; 87070; 87075; 87102; 87116; 87176; 87205; 87206; 88304; 88307; 88311; 94640; 94668; 96361; 96365; 96366; 96367; 97802; 99221; 99252; 99406; J7050; J7120; G0378; G0463; J2405